=== PATIENT | male | born 1990 | race Caucasian/White ===

== ENCOUNTER 2017-06-02 21:33 | Emergency (ER) | payer BC ==
--- NOTE | 2017-06-02 22:04 | EDM.PDOC ---
ED HPI GENERAL MEDICAL PROBLEM - General Chief Complaint: Respiratory Problem Stated Complaint: HARD TIME BREATHING AND DIZZY Time Seen by Provider: 06/02/17 21:54 Source of Information: Reports: Patient History Limitations: Reports: No Limitations - History of Present Illness INITIAL COMMENTS - FREE TEXT/NARRATIVE: 26-year-old male presents for evaluation and treatment of cough and cold symptoms. Patient reports he's been ill for the last week. Current symptoms include a productive cough, dizziness, decreased hearing to the left ear, left ear pain, congestion, body aches. He also reports he's had some looser diarrhea like stools. No fevers, chills, nausea or vomiting. States that he has a sore throat initially with this but it has since improved. He states he has been taking [id number] cold medicine for 7 days continues to have symptoms. 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 He was started on Keflex 1 tab twice a day for 10 days. He has been taking this as prescribed. patient is here from [place]. He comes up and works 2 weeks on and week off goes home to [place] for a week. No influenza vaccine this season. patient questions if this is allergies. - Related Data Allergies Allergy/AdvReac Type Severity Reaction Status Date / Time No Known Allergies Allergy Verified 06/02/17 21:44 Home Meds: Home Meds Cephalexin 500 mg PO BID 06/02/17 [History] Mometasone Furoate [Nasonex [place]] 2 spray RUDI BID #1 canister 06/02/17 [Rx] Past Medical History HEENT History: Reports: Impaired Vision Other HEENT History: Wears glasses - Past Surgical History HEENT Surgical History: Reports: Oral Surgery Other HEENT Surgeries/Procedures: [place] tooth extraction Social & Family History - Tobacco Use Smoking Status *Q: Current Every Day Smoker Years of Tobacco use: 10 Packs/Tins Daily: 0.5 - Recreational Drug Use Recreational Drug Use: No ED ROS GENERAL - Review of Systems Review Of Systems: See Below Constitutional: Denies: Fever, Chills HEENT: Reports: Ear Pain (left), Hearing Loss (left), Sinus Problem Respiratory: Reports: Cough, Sputum GI/Abdominal: Denies: Nausea, Vomiting Neurological: Reports: Dizziness, Headache ED EXAM, GENERAL - Physical Exam Exam: See Below Exam Limited By: No Limitations General Appearance: Alert, WD/WN, No Apparent Distress, Obese Eye Exam: Bilateral Eye: Normal Inspection Ears: Normal External Exam, Normal Canal, Hearing Grossly Normal Ear Exam: Right Ear: TM normal, Left Ear: Erythema Nose: Normal Inspection Throat/Mouth: Normal Inspection, Normal Lips, Normal Oropharynx, Normal Voice, No Airway Compromise Respiratory/Chest: No Respiratory Distress, Lungs Clear, Normal Breath Sounds Cardiovascular: Normal Peripheral Pulses, Regular Rate, Rhythm, No Murmur Neurological: Alert, Oriented, Normal Cognition Psychiatric: Normal Affect, Normal Mood Skin Exam: Warm, Dry, Normal Color Course - Vital Signs Last Recorded V/S: Last Vital Signs Temp 36.4 C 06/02/17 21:45 Pulse 80 06/02/17 21:45 Resp 18 06/02/17 21:45 BP 135/82 06/02/17 21:45 Pulse Ox 99 06/02/17 21:45 - Re-Assessments/Exams Free Text/Narrative Re-Assessment/Exam: 06/02/17 23:06 Influenza returned negative. I do not hear anything in the chest and I do not feel he has pneumonia. He is currently in Keflex for psoriasis. This should cover for upper respiratory infections, ear infections, sinusitis as well. I will have him start either Nasonex or Flonase for the otitis effusion. He is to follow-up with his symptoms do not improve. Discharge instructions as documented. Departure - Departure Time of Disposition: 23:07 Disposition: Home, Self-Care 01 Condition: Fair Clinical Impression: Upper respiratory infection - Discharge Information Prescriptions: Mometasone Furoate [Nasonex [place]] 2 spray RUDI BID #1 canister Referrals: PCP,None [Primary Care Provider] - Forms: ED Department Discharge, ED Return to Work/School Form Additional Instructions: Continue on your antibiotic as prescribed. Tylenol or Motrin as needed for headaches and body aches. Rest. Make sure drink plenty of fluids. nasonex nasal spray 2 sprays in each nostril twice a day Follow-up with family medicine if your symptoms persist beyond 10 days. Recommend Crys Saldana or Dr. Tran at the [facility] if you would like to see provider here in [place]. Call [phone] to schedule with one of these providers here. Please return to the ER if your symptoms change or worsen.
== END 2017-06-02 23:20 | disposition home or self-care (01) ==
LOC: JD.ED 21:33
DX: J06.9 Acute upper respiratory infection, unspecified (principal); F17.210 Nicotine dependence, cigarettes, uncomplicated
CPT/HCPCS: 87804; 99282; 99283

== ENCOUNTER 2021-03-28 19:06 | Emergency (ER) | payer BC ==
[2021-03-28] MEDS ORDERED: Ondansetron 4 MG/2 ML SDV IVPUSH ONE (19:39)
[2021-03-28] MEDS ORDERED: Sodium Chloride 0.9% 1,000 ML IV ONE (19:39)
== END 2021-03-28 21:11 | disposition home or self-care (01) ==
LOC: JD.ED 19:06
DX: B34.9 Viral infection, unspecified (principal); Z20.822 Contact with and (suspected) exposure to COVID-19; Z87.891 Personal history of nicotine dependence
CPT/HCPCS: 36415; 71046; 80048; 85025; 85379; 86140; 87040; 87635; 87651; 87804; 96374; 99284; J2405; J7030; U0002

== ENCOUNTER 2022-06-13 17:23 | Emergency (ER) | payer BC | END 2022-06-13 18:17 | disposition home or self-care (01) | LOC: JD.ED 17:23 | DX: H00.021 Hordeolum internum right upper eyelid (principal); E66.9 Obesity, unspecified; F17.210 Nicotine dependence, cigarettes, uncomplicated; Z68.43 Body mass index [BMI] 50.0-59.9, adult | CPT/HCPCS: 99282; 99283 ==

== ENCOUNTER 2024-12-01 00:28 | Emergency (ER) | payer BC | END 2024-12-01 01:07 | disposition home or self-care (01) | LOC: JD.ED 00:28 | DX: H66.92 Otitis media, unspecified, left ear (principal); J06.9 Acute upper respiratory infection, unspecified; E66.9 Obesity, unspecified; Z88.0 Allergy status to penicillin | CPT/HCPCS: 99283; A9270 ==